=== PATIENT | female | born 1935 | race Two or more races ===

== ENCOUNTER 2020-11-10 10:45 | Inpatient (IN) | payer OTHER ==
[~2020-11-10] VITALS: Ht 165.1 cm; Wt 56.7 kg
[2020-11-13] MEDS ORDERED: PROCTOCREAM-HC30 GM (10:19)
[2020-11-13] MEDS ORDERED: ST. JOSEPH ASPI81 M2 (10:19)
[2020-11-13] MEDS ORDERED: LOSARTAN POTAS100 MG (10:19)
[2020-11-13] MEDS ORDERED: RALOXIFENE HCL60 MG (10:19)
[2020-11-13] MEDS ORDERED: FOLIC ACID1 MG (10:19)
[2020-11-15] MEDS ORDERED: ULTRACET PO (10:36)
== END 2020-11-15 12:24 | disposition home or self-care (01) | DRG 334 ==
LOC: EDSTATUS 10:45 → ADM 10:45 → O/R 11-13 09:58 → SURG 11-13 09:58 → SURH 11-13 10:45 → SURG 11-13 20:05
PROVIDERS: ADMIT Surgery; ATTEND Surgery
PROC: 0DUR07Z Supplement Anal Sphincter with Autologous Tissue Substitute, Open Approach (ICD-10-PCS; 2020-11-13)
PROC: 0DTP0ZZ Resection of Rectum, Open Approach (ICD-10-PCS; principal; 2020-11-13 17:00)
DX: K62.3 Rectal prolapse (principal); K62.89 Other specified diseases of anus and rectum; R15.9 Full incontinence of feces; I11.9 Hypertensive heart disease without heart failure